=== PATIENT | male | born 1995 | race Hispanic/Latino ===

== ENCOUNTER 2019-08-24 19:02 | Emergency (ER) | payer OTHER ==
[2019-08-24] MEDS ORDERED: TETANUS & DIPHTHERIA TOX,ADULT 0.5 ML VIAL ONE (20:31)
--- NOTE | 2019-08-24 20:31 | ER ---
Nurse's Notes [facility] Name: Lester Parker Jr Age: 24 yrs Sex: Male : 1995 Arrival Date: 08/24/2019 Time: 19:04 Bed 13 Private MD: Diagnosis: Cellulitis of left upper limb-forearm Presentation: 08/24 19:07 Presenting complaint: Patient states: "I think I have a cyst on my arm, looked like a aj1 pimple, so I tried to bust it, but its just gotten more red and swollen" Abscess noted to left arm. Transition of care: patient was not received from another setting of care. Onset of symptoms was August 24, 2019. Risk Assessment: Do you want to hurt yourself or someone else? Patient reports no desire to harm self or others. Initial Sepsis Screen: Does the patient meet any 2 criteria? No. Patient's initial sepsis screen is negative. Does the patient have a suspected source of infection? Yes: Skin breakdown/wound. Care prior to arrival: None. 19:07 Method Of Arrival: Ambulatory aj 19:07 Acuity: PABLITO 4 aj1 Triage Assessment: 19:10 General: Appears in no apparent distress. comfortable, Behavior is calm, cooperative, aj1 appropriate for age. Pain: Complains of pain in left arm. Neuro: Level of Consciousness is awake, alert, obeys commands. Cardiovascular: Patient's skin is warm and dry. Respiratory: Airway is patent Respiratory effort is even, unlabored, Respiratory pattern is regular, symmetrical. Historical: - Allergies: 19:10 No Known Allergies; aj1 - Home Meds: 19:10 None [Active]; aj1 - PMHx: 19:10 None; aj1 - PSHx: 19:10 None; aj1 - Immunization history:: Flu vaccine is not up to date. - Coronavirus screen:: The patient has NOT traveled to [place] in the past 14 days. - Social history:: Smoking status: Patient/guardian denies using tobacco. - Ebola Screening: : Patient denies travel to an Ebola-affected area in the 21 days before illness onset. Screenin:20 Abuse screen: Denies threats or abuse. Denies injuries from another. Nutritional rr5 screening: No deficits noted. Tuberculosis screening: No symptoms or risk factors identified. Fall Risk None identified. Total Unger Fall Scale indicates No Risk (0-24 pts). Assessment: 19:20 General: Appears in no apparent distress. comfortable, Behavior is calm, cooperative, rr5 appropriate for age. 19:20 Pain: Complains of pain in palmar aspect of left forearm Pain does not radiate. Pain rr5 currently is 7 out of 10 on a pain scale. Quality of pain is described as aching, Pain began gradually, Is intermittent. Neuro: Level of Consciousness is awake, alert, obeys commands, Oriented to person, place, time, situation. Cardiovascular: Capillary refill < 3 seconds Patient's skin is warm and dry. Respiratory: Airway is patent Respiratory effort is even, unlabored, Respiratory pattern is regular, symmetrical. GI: No signs and/or symptoms were reported involving the gastrointestinal system. : No signs and/or symptoms were reported regarding the genitourinary system. EENT: No signs and/or symptoms were reported regarding the EENT system. Derm: Skin is intact, is healthy with good turgor, Skin temperature is warm Abscess located on palmar aspect of left forearm is quarter sized, has no drainage, is hot to touch, is red, is raised, Reports pain that is 7 out of 10 on a pain scale. Musculoskeletal: Circulation, motion, and sensation intact. Capillary refill < 3 seconds. 20:39 Reassessment: Patient appears in no apparent distress at this time. Patient is alert, rr5 oriented x 3, equal unlabored respirations, skin warm/dry/pink. discharge instruction given and explained without complaints made. Vital Signs: 19:10 BP 140 / 76; Pulse 89; Resp 18; Temp 98.6; Pulse Ox 96% on R/A; Weight 90.72 kg (R); aj1 Height 5 ft. 9 in. (175.26 cm) (R); Pain 6/10; 20:40 BP 110 / 70; Pulse 85; Resp 17; Pulse Ox 98% on R/A; rr5 19:10 Body Mass Index 29.53 (90.72 kg, 175.26 cm) aj1 ED Course: 19:04 Patient arrived in ED. as 19:09 Triage completed. aj1 19:10 Arm band placed on Patient placed in waiting room, Patient notified of wait time. aj1 19:31 Alex Rivera, RN is Primary Nurse. rr5 19:32 Fercho Hyatt PA is PHCP. cp 19:32 Fercho Gomez MD is Attending Physician. cp 19:48 Patient has correct armband on for positive identification. Bed in low position. Call rr5 light in reach. 20:15 Wound care: to cellulitis located on palmar aspect of left forearm was cleaned with rr5 Hibiclens, dressed with Neosporin, 4X4s, Kerlix, Patient tolerated well. 20:38 No provider procedures requiring assistance completed. Patient did not have IV access rr5 during this emergency room visit. 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 Exp: rr5 07/18/2020. Lot #: [id number]. } Route: IM; Site: left deltoid; 20:40 Follow up: Response: Medication administered at discharge. rr5 Outcome: 20:30 Discharge ordered by MD. cp 20:39 Discharged to home ambulatory, with family. rr5 20:39 Condition: stable 20:39 Discharge instructions given to patient, Instructed on discharge instructions, follow up and referral plans. medication usage, Demonstrated understanding of instructions, follow-up care, medications, Prescriptions given X 1. 20:41 Patient left the ED. rr5 Signatures: Shona Acosta RN RN aj1 Tayler Peñaloza as Fercho Hyatt PA PA cp Alex Rivera, RN RN rr5 Corrections: (The following items were deleted from the chart) 20:39 20:38 Wound care: to cellulitis located on palmar aspect of left forearm was cleaned rr5 with Hibiclens, dressed with Neosporin, 4X4s, Kerlix, Patient tolerated well. rr5
--- NOTE | 2019-08-24 20:32 | EDPHYS ---
Physician Documentation [facility] Name: Lester Parker Jr Age: 24 yrs Sex: Male : 1995 Arrival Date: 08/24/2019 Time: 19:04 Bed 13 Private MD: ASHLEY Physician Fercho Gomez HPI: 08/24 20:24 This 24 yrs old Male presents to ER via Ambulatory with complaints of Arm Pain.cp 20:24 The patient or guardian complains of pain, that is acute, swelling, tenderness, cp erythema. The complaints affect the palmar aspect of left forearm. Patient reports noticing what appeared to be a "pimple or cyst" to left forearm. Pierced area with needle multiple times. No drainage observed. Area now swollen and red. Historical: - Allergies: 19:10 No Known Allergies; aj1 - Home Meds: 19:10 None [Active]; aj1 - PMHx: 19:10 None; aj1 - PSHx: 19:10 None; aj1 - Immunization history:: Flu vaccine is not up to date. - Coronavirus screen:: The patient has NOT traveled to [place] in the past 14 days. - Social history:: Smoking status: Patient/guardian denies using tobacco. - Ebola Screening: : Patient denies travel to an Ebola-affected area in the 21 days before illness onset. ROS: 20:26 Eyes: Negative for injury, pain, redness, and discharge. cp 20:26 Constitutional: Negative for body aches, chills, fever. 20:26 ENT: Negative for drainage from ear(s), ear pain, sore throat, difficulty swallowing, difficulty handling secretions. 20:26 Cardiovascular: Negative for chest pain, palpitations. 20:26 Respiratory: Negative for cough, shortness of breath, wheezing. 20:26 Abdomen/GI: Negative for nausea, vomiting, and diarrhea. 20:26 MS/extremity: Positive for erythema, pain, swelling, tenderness, of the palmar aspect of left forearm, Negative for injury or acute deformity, decreased range of motion, paresthesias. 20:26 Neuro: Negative for altered mental status, headache, weakness. 20:26 All other systems are negative. Exam: 20:28 Constitutional: The patient appears in no acute distress, alert, awake, non-toxic, well cp developed, well nourished. 20:28 Skin: abscess, not appreciated, cellulitis, that is mild, on the palmar aspect of left forearm, noted superficial puncture type wounds. Vital Signs: 19:10 BP 140 / 76; Pulse 89; Resp 18; Temp 98.6; Pulse Ox 96% on R/A; Weight 90.72 kg (R); aj1 Height 5 ft. 9 in. (175.26 cm) (R); Pain 6/10; 20:40 BP 110 / 70; Pulse 85; Resp 17; Pulse Ox 98% on R/A; rr5 19:10 Body Mass Index 29.53 (90.72 kg, 175.26 cm) aj1 MDM: 19:47 Patient medically screened. cp 20:20 Differential diagnosis: cellulitis, abscess, lymphangitis. cp 20:30 Data reviewed: vital signs, nurses notes, and as a result, I will discharge patient. cp 20:30 Counseling: I had a detailed discussion with the patient and/or guardian regarding: the cp historical points, exam findings, and any diagnostic results supporting the discharge/admit diagnosis, to return to the emergency department if symptoms worsen or persist or if there are any questions or concerns that arise at home. 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 Exp: rr5 07/18/2020. Lot #: [id number]. } Route: IM; Site: left deltoid; 20:40 Follow up: Response: Medication administered at discharge. rr5 Disposition: 20:45 Chart complete. cp Disposition: 08/24/19 20:30 Discharged to Home. Impression: Cellulitis of left upper limb - forearm. - Condition is Stable. - Discharge Instructions: Cellulitis, Adult. - Prescriptions for Bactrim DS 800- 160 mg Oral Tablet - take 1 tablet by ORAL route every 12 hours for 10 days; 20 tablet. - Medication Reconciliation Form, Thank You Letter, Antibiotic Education, Prescription Opioid Use form. - Follow up: Private Physician; When: 48 Hours; Reason: Worsening of condition. - Problem is new. - Symptoms have improved. Addendum: 08/25/2019 23:42 Co-signature as Attending Physician, Fercho Gomez MD I agree with the assessment and c del cid plan of care. Signatures: Shona Acosta RN RN aj1 Fercho Gomez MD MD cha Page, Corey, PA PA cp Alex Rivera, RN RN rr5 Corrections: (The following items were deleted from the chart) 08/24 20:41 20:30 08/24/2019 20:30 Discharged to Home. Impression: Cellulitis of left upper limb - rr5 forearm. Condition is Stable. Forms are Medication Reconciliation Form, Thank You Letter, Antibiotic Education, Prescription Opioid Use. Follow up: Private Physician; When: 48 Hours; Reason: Worsening of condition. Problem is new. Symptoms have improved. cp
[2019-08-24 21:18] VITALS: TEMP 98.6
[2019-08-24 21:19] VITALS: BP 110/70; O2SAT 98
== END 2019-08-24 20:41 | disposition home or self-care (01) ==
LOC: ER 19:02
DX: L03.114 Cellulitis of left upper limb (principal)
CPT/HCPCS: 90471; 90714; 99283